=== PATIENT | female | born 1955 | race Caucasian/White ===

== ENCOUNTER 2020-01-01 14:22 | Outpatient (CLI) | payer MEDICARE, SELFPAY ==
--- NOTE | ~2020-01-01 | XR_ITS ---
XR chest 2V DATE: 01/01/2020 14:55 INDICATION: Cough. Acute upper respiratory infection. TECHNIQUE: PA and lateral views COMPARISON: 01/16/2019 PA and lateral chest FINDINGS: Postoperative changes of cervical spinal fusion and thoracolumbar spine fusion. Normal heart size. No hilar or mediastinal enlargement. No pulmonary infiltrate or consolidation, ple ural effusion or pulmonary vascular congestion or pneumothorax. Surgical clips, right upper quadrant, likely due to cholecystectomy. IMPRESSION: No active cardiopulmonary disease Reviewed, dictated and finalized at location A.
== END 2020-01-01 14:23 | disposition home or self-care (01) ==
PROVIDERS: PCP Family Medicine; Visit Provider Nurse Practitioner Family
DX: J06.9 Acute upper respiratory infection, unspecified (principal)
CPT/HCPCS: 71046

== ENCOUNTER 2020-01-06 09:25 | Outpatient (CLI) | payer MEDICARE, SELFPAY ==
[2020-01-06 09:38] LABS: Basophils Absolute Auto 0.1 K/mm3 (0.0-0.1); Basophils Percent Auto 0.6 % (0.2-1.2); Eosinophils Absolute Auto 0.3 K/mm3 (0-0.3); Eosinophils Percent Auto 2.4 % (0-4.4); Hematocrit 42.2 % (37.0-47.0); Hemoglobin 13.6 g/dL (12.0-15.0); Immature Granulocyte Absolute 0.11 K/mm3 (0.00-0.031); Immature Granulocyte Percent A 0.8 % (0-0.5); Lymphocytes Percent Auto 27.7 % (18.3-44.2); Mean Corpuscular HGB Conc 32.2 g/dl (32-36); Mean Corpuscular Hemoglobin 30.6 pg (26-34); Mean Corpuscular Volume 94.8 fl (80-100); Mean Platelet Volume 9.2 fl (7.4-10.4); Monocytes Absolute Auto 1.1 K/mm3 (0.1-0.6); Monocytes Percent Auto 7.9 % (2.6-8.5); Neutrophils Absolute Auto 8.8 K/mm3 (1.3-6.7); Neutrophils Percent Auto 60.6 % (45.5-73.1); Platelet Count Result 382 k/mm3 (150-375); Red Blood Count 4.45 M/mm3 (4.2-5.4); Red Cell Distribution Width 13.6 % (11.5-14.5); White Blood Count 14.5 K/mm3 (4.5-10.0)
== END 2020-01-06 09:26 | disposition home or self-care (01) ==
LOC: ANHLAB 09:27
PROVIDERS: PCP Family Medicine; Visit Provider Internal Medicine Hematology & Oncology
DX: D47.3 Essential (hemorrhagic) thrombocythemia (principal)
CPT/HCPCS: 36415; 85025

== ENCOUNTER 2020-04-06 11:28 | Outpatient (CLI) | payer MEDICARE, SELFPAY ==
--- NOTE | 2020-04-06 11:43 | ECG_ITS ---
Measurements Intervals [place] Rate: 97 P: 59 WV: 136 QRS: 2 QRSD: 84 T: 63 QT: 329 QTc: 420 Interpretive Statements SINUS RHYTHM ATRIAL PREMATURE COMPLEX BASELINE WANDER- V4-V6 BORDERLINE ECG Electronically Signed On 04-06-2020 12:17:20 CDT by Asher Chairez D.O.
== END 2020-04-06 11:29 | disposition home or self-care (01) ==
PROVIDERS: PCP Family Medicine; Visit Provider Family Medicine
DX: I10 Essential (primary) hypertension (principal); R94.31 Abnormal electrocardiogram [ECG] [EKG]
CPT/HCPCS: 93005

== ENCOUNTER 2020-04-11 16:48 | Observation (INO) | payer MEDICARE, SELFPAY ==
--- NOTE | ~2020-04-11 | CT_ITS ---
EXAMINATION: CT hip RT wo con DATE: 04/11/2020 22:59 INDICATION: Right hip pain. TECHNIQUE: Computed tomography (CT) of the right hip was performed without intravenous contrast. Auto mated exposure control and iterative reconstruction technique were employed. The dose-length product was 867.90 mGy-cm. COMPARISON: Right hip radiographs 04/11/2020 FINDINGS: Bone alignment is normal. No fracture. There are changes of anterior and posterior fusion p rocedures in lumbar spine. There are lucencies around the right L5 pedicle screw, consistent with loo sening. There is a revision of the left S1 screw. There is mild right hip osteoarthritis. IMPRESSION: 1. No fracture. 2. Mild right hip osteoarthritis. 3. Anterior and posterior fusion procedures in lumbar spine with lucencies around the right L5 screw, consistent with loosening. Reviewed, dictated and finalized at location A. IMPRESSION: 1. No fracture. 2. Mild right hip osteoarthritis. 3. Anterior and posterior fusion procedures in lumbar spine with lucencies arou nd the right L5 screw, consistent with loosening.
--- NOTE | ~2020-04-11 | MR_ITS ---
EXAMINATION: MR hip RT wo con DATE: 04/12/2020 16:21 INDICATION: Right hip pain. TECHNIQUE: Magnetic resonance imaging (MRI) of the right hip was performed without intravenous contra st. Sequences included axial and coronal PD-weighted FS FSE and axial T1-weighted FSE and axial STIR FSE of the pelvis. Sequences of the hip included 2D FIESTA, T1-weighted fast GRE, coronal PD-weighted FSE, and axial and sagittal PD-weighted FS FSE. COMPARISON: Right hip radiographs and CT 04/11/2020 FINDINGS: Bones/cartilage: There is artifact from instrumentation of lumbar spine. Bone alignment is normal. No fracture. There is mild right hip osteoarthritis including partial thickness cartilage loss and tiny osteophytes. Labrum: The right acetabular labrum is intact. Fluid: There is no hip joint effusion. There is mild right-sided trochanteric bursitis. Soft tissues: There is edema in the right gluteus minimus, gluteus medius, and tensor fascia shae muscles near ante rior superior iliac spine. There are symmetric partial tears of the hamstring origins bilaterally. Th ere is severe right gluteus minimus tendinopathy and mild right gluteus medias tendinopathy. IMPRESSION: 1. No fracture. 2. Mild right hip osteoarthritis. 3. Edema in right gluteus minimus, gluteus medius, and tensor fascia shae muscles near anterior super ior iliac spine, consistent with mild strains. 4. Severe right gluteus minimus tendinopathy and mild right gluteus medius tendinopathy. 5. Mild right-sided trochanteric bursitis. Reviewed, dictated and finalized at location A. IMPRESSION: 1. No fracture. 2. Mild right hip osteoarthritis. 3. Edema in right gluteus minimus, gluteus medius, and tensor fascia shae muscl es near anterior superior iliac spine, consistent with mild strains. 4. Severe right gluteus minimus tendinopathy and mild right gluteus medius tend inopathy. 5. Mild right-sided trochanteric bursitis.
--- NOTE | ~2020-04-11 | XR_ITS ---
EXAMINATION: XR hip RT min 2V DATE: 04/11/2020 18:43 INDICATION: Right hip pain. TECHNIQUE: 3 views of right hip on 4 radiographs were obtained. COMPARISON: None. FINDINGS: Bone alignment is normal. No fracture. There is mild right hip osteoarthritis. IMPRESSION: 1. Mild right hip osteoarthritis. Reviewed, dictated and finalized at location A.
[2020-04-11 16:55] VITALS: BP 137/50; PULSE 83; RESP 16; TEMP 36.2; O2SAT 96
[2020-04-11 19:25] VITALS: BP 130/69; PULSE 86; RESP 18; O2SAT 98
--- NOTE | 2020-04-11 20:22 | ED.GENADULT ---
HPI - General Adult General Chief complaint: Extremity Injury, Lower Stated complaint: R hip pain Time Seen by Provider: 04/11/20 20:07 Source: patient History of Present Illness HPI narrative: Patient is a 65 y/o female complaining of severe right hip pain for last 3 days. She states she has arthritis and chronic pain, but pain is worse since 3 days ago. There is no pain radiation. She describes her pain as sharp and rates it as 4/10 at rest and 10/10 with movement. Movement aggravates her pain. She took Ibuprofen which did not help. She has no fever, chill. She has some nausea, but no vomiting. She is not able to ambulate due to severe pain. She has chronic back pain and history of back surgery. She states that she fell in bath tub 4 weeks ago, but did not have more recent trauma. Related Data Home Medications Medication Instructions Recorded Confirmed ascorbic acid (vitamin C) 500 mg 500 mg PO DAILY 06/04/19 04/05/20 tablet aspirin 81 mg tablet,delayed 81 mg PO DAILY 06/04/19 04/05/20 release budesonide 0.5 mg/2 mL suspension 0.5 mg INHALATION DAILY 06/04/19 04/05/20 for nebulization fluticasone propionate 50 2 spray NASAL DAILY 06/04/19 04/05/20 mcg/actuation nasal spray,suspension multivitamin 1 tablet PO DAILY 08/18/19 04/05/20 albuterol sulfate 2.5 mg INHALATION Q4-6H PRN 10/09/19 04/05/20 Allergies Allergy/AdvReac Type Severity Reaction Status Date / Time Penicillins Allergy Intermediate Hives Verified 04/05/20 13:02 Sulfa (Sulfonamide AdvReac Intermediate Abdominal Verified 04/05/20 13:02 Antibiotics) Pain sulfanilamide AdvReac Intermediate Abdominal Verified 04/05/20 13:02 Pain erythromycin base AdvReac Mild Abdominal Verified 04/05/20 13:02 Pain tetracycline AdvReac Mild Abdominal Verified 04/05/20 13:02 Pain Review of Systems Constitutional: Constitutional: Denies chills, Denies fever(s), Denies headache(s) and Denies weakness Eyes: Eyes: Denies blurry vision ENT: Denies headache(s) and Denies neck pain Cardiovascular: Cardiovascular: Denies chest pain and Denies dyspnea Respiratory: Respiratory: Denies cough and Denies dyspnea Gastrointestinal: Gastrointestinal: Denies abdominal pain, Denies diarrhea, Reports nausea and Denies vomiting Genitourinary: Genitourinary: Denies hematuria and Denies dysuria Musculoskeletal: Musculoskeletal: Reports back pain (chronic), Reports arthralgias (right hip pain) and Denies neck pain Neurologic: Denies headache(s) and Denies weakness PMFSH Past Medical History Medical History Anxiety and depression Bronchitis Elevated glucose Elevated liver enzymes Essential hypertension Gastro-esophageal reflux disease without esophagitis History of pulmonary embolism Hypothyroidism Lumbar spondylosis with myelopathy Mixed hyperlipidemia Obesity due to energy imbalance Other intervertebral disc degeneration, lumbosacral region Skin cancer Unspecified asthma, uncomplicated Surgical History Surgical History History of appendectomy 1986 History of carpal tunnel release 2000 History of cholecystectomy 2009 History of fusion of cervical spine C6-C7 1985, 1990, 2005, 2010 History of fusion of lumbar spine 2006, 2010 History of repair of rotator cuff 1988 Status post insertion of spinal cord stimulator Family History Family History Mother Hypertension Father Hypertension Cerebrovascular accident Family history of diabetes mellitus in first degree relative Family history of coronary artery disease Other Diabetes mellitus Family history of arthritis Social History Social History Smoking status: Never smoker Alcohol intake: never Substance use: never Substance use type: does not use Gender identity (
[2020-04-11] MEDS: KETOROLAC 30 MG/ML VIAL (*BKC) IV PUSH (20:52)
[2020-04-11 21:21] LABS: Anion Gap 10 mmol/L (8-16); Blood Urea Nitrogen 28 mg/dL (7-17); Calcium 9.7 mg/dL (8.4-10.2); Carbon Dioxide 27 mmol/L (22-30); Chloride 102 mmol/L (98-107); Estimated CRCL calculation 74 ml/min; Estimated Glomerular Filt Rate > 60; Glucose 105 mg/dL (65-105); Potassium 4.3 mmol/L (3.4-5.0); Sodium 139 mmol/L (137-145)
[2020-04-11 21:41] LABS: Erythrocyte Sedimentation Rate 33 mm/hr (0-20)
[2020-04-11] MEDS: MORPHINE SULFATE 4 MG/ML INJ IV PUSH (21:49)
[2020-04-11] MEDS: CYCLOBENZAPRINE HCL 10 MG TABLET PO (22:51)
--- NOTE | 2020-04-11 23:15 | PC.NURSE ---
Assumed care of patient-received report from Farrah GOOD. Patient continues to c/o Right hip pain
[2020-04-12] VITALS (8 sets, daily range): BP systolic 112–147; BP diastolic 47–77; PULSE 74–92; RESP 17–27; TEMP 36.3–37; O2SAT 92–99; BMI 45.7
--- NOTE | 2020-04-12 01:14 | ADMGEN ---
This patient, Tammie Sims, was admitted to [facility] Surg Room 300-01. Patient/family oriented to hospital policies and general routines including ID bracelet, bed and alarms, visiting hours, pain management, procedures, bathroom and other care routines, personal items, smoking policy, room service/diet, and visiting hours. Valuables list has been completed. Information on how to activate the Rapid Response Team has been discussed. Patient/Family are encouraged to report perceived risks to care and to ask questions if they do not understand what they are told or what they should do.
--- NOTE | 2020-04-12 01:35 | PM.IMHP ---
H&P: HPI History of Present Illness Date/Time: 04/12/20 01:35 Chief complaint: right hip pain Narrative: this is a pleasant 65-year-old female with known chronic back pain, hypothyroidism, and other comorbidities who presented to the hospital [facility] with a complaint of severe right hip pain that has worsened over the past 3 days. The patient mentions that she is known to have had chronic right hip discomfort for a long time now although this has worsened over the past 3 days. [facility] the patient cannot bear any weight and can no longer ambulate. She reports that she fell in the bathtub about a month ago but since then she has not had any other instances of trauma. Patient denies any fevers, chills, rashes, chest pain, shortness of breath, dysuria, abdominal pain, hematuria, or focal neurological symptoms. Patient was evaluated emergency room this evening and underwent CT scan of her right hip and plain x-ray films which were unremarkable. Orthopedic surgeon was consulted by ER provider who has asked that we admit the patient to the hospital and obtain an MRI of her right hip in the morning. patient has no other complaints at this time. Review of Systems Review of Systems: All systems reviewed & are unremarkable except as noted in HPI and below PMFSH Past Medical History Medical History Anxiety and depression Bronchitis Elevated glucose Elevated liver enzymes Essential hypertension Gastro-esophageal reflux disease without esophagitis History of pulmonary embolism Hypothyroidism Lumbar spondylosis with myelopathy Mixed hyperlipidemia Obesity due to energy imbalance Other intervertebral disc degeneration, lumbosacral region Skin cancer Unspecified asthma, uncomplicated Surgical History Surgical History History of appendectomy 1986 History of carpal tunnel release 2000 History of cholecystectomy 2009 History of fusion of cervical spine C6-C7 1985, 1991, 2005, 2010 History of fusion of lumbar spine 2006, 2010 History of repair of rotator cuff 1988 Status post insertion of spinal cord stimulator Family History Family History Mother Hypertension Father Hypertension Cerebrovascular accident Family history of diabetes mellitus in first degree relative Family history of coronary artery disease Other Diabetes mellitus Family history of arthritis Social History Social History Smoking status: Never smoker Alcohol intake: never Substance use: never Substance use type: does not use Gender identity (if verbalized by the patient): Female Spiritual care concerns: No Meds Home Medications and Allergies Home Medications Medication Instructions Recorded Confirmed Type ascorbic acid (vitamin C) 500 mg 500 mg PO DAILY 06/04/19 04/05/20 History tablet aspirin 81 mg tablet,delayed 81 mg PO DAILY 06/04/19 04/05/20 History release budesonide 0.5 mg/2 mL suspension 0.5 mg INHALATION DAILY 06/04/19 04/05/20 History for nebulization fluticasone propionate 50 2 spray NASAL DAILY 06/04/19 04/05/20 History mcg/actuation nasal spray,suspension multivitamin 1 tablet PO DAILY 08/18/19 04/05/20 History albuterol sulfate 2.5 mg INHALATION Q4-6H PRN 10/09/19 04/05/20 History albuterol sulfate 90 mcg/actuation 2 inhalation INHALATION Q4-6H PRN 10/09/19 04/05/20 Rx aerosol inhaler #8.5 gm furosemide 20 mg tablet 20 mg PO QAM #90 tablet 10/23/19 04/05/20 Rx meloxicam 15 mg tablet 15 mg PO DAILY #90 tablet 01/04/20 04/05/20 Rx levothyroxine 175 mcg tablet 175 mcg PO DAILY #30 tablet 01/12/20 04/05/20 Rx duloxetine 60 mg capsule,delayed 60 mg PO DAILY #90 cap 01/18/20 04/05/20 Rx release hydrocodone 5 mg-acetaminophen 325 1 tablet PO Q8H PRN #90 tablet 02/15/20 04/05/20
[2020-04-12] MEDS: MORPHINE SULFATE 4 MG/ML INJ IV PUSH ×3 (03:28→20:11)
[2020-04-12 06:28] LABS: Basophils Absolute Auto 0.1 K/mm3 (0.0-0.1); Basophils Percent Auto 0.6 % (0.2-1.2); Eosinophils Absolute Auto 0.2 K/mm3 (0-0.3); Eosinophils Percent Auto 1.6 % (0-4.4); Hematocrit 38.1 % (37.0-47.0); Hemoglobin 12.4 g/dL (12.0-15.0); Immature Granulocyte Absolute 0.11 K/mm3 (0.00-0.031); Immature Granulocyte Percent A 0.7 % (0-0.5); Lymphocytes Percent Auto 33.9 % (18.3-44.2); Mean Corpuscular HGB Conc 32.5 g/dl (32-36); Mean Corpuscular Hemoglobin 30.5 pg (26-34); Mean Corpuscular Volume 93.8 fl (80-100); Mean Platelet Volume 9.7 fl (7.4-10.4); Monocytes Absolute Auto 1.3 K/mm3 (0.1-0.6); Monocytes Percent Auto 9.1 % (2.6-8.5); Neutrophils Percent Auto 54.1 % (45.5-73.1); Platelet Count Result 335 k/mm3 (150-375); Red Blood Count 4.06 M/mm3 (4.2-5.4); Red Cell Distribution Width 14.1 % (11.5-14.5); White Blood Count 14.8 K/mm3 (4.5-10.0)
[2020-04-12 06:41] LABS: Anion Gap 5 mmol/L (8-16); Blood Urea Nitrogen 33 mg/dL (7-17); Calcium 9.3 mg/dL (8.4-10.2); Carbon Dioxide 32 mmol/L (22-30); Chloride 101 mmol/L (98-107); Estimated CRCL calculation 67 ml/min; Estimated Glomerular Filt Rate > 60; Glucose 121 mg/dL (65-105); Sodium 138 mmol/L (137-145)
--- NOTE | 2020-04-12 09:42 | PM.CNOR ---
Assessment and Plan Assessment and plan (1) Acute pain of right hip: Code(s): M25.551 - Pain in right hip <Pat Salazar [employer] ASSISTANT - Last Filed: 04/12/20 17:03> Status: Acute <Pat Salazar [facility] - Last Filed: 04/12/20 17:03> Assessment and Plan: Three day history of right hip pain which radiates down the lateral aspect of the leg and into the anterior aspect of the thigh. History, exam, radiographs and CT scan reviewed with the patient. Emergency room records reviewed. The patient denies any injury of the right hip but did slip in the bathtub approximately 4 weeks ago. She reports no pain immediately status post her fall. Over the past 3 days she has had increasing right hip pain which has caused her difficulty with laying on the affected side. She has been taking ibuprofen which is provided her with no relief of pain. She is having difficulty walking due to pain. She does have an extensive lumbar spine history with approximately 5 surgeries which were performed in [place]. Radiograph of the right hip reveal no evidence of fracture, dislocation or acute abnormalities. CT scan of the right hip showed mild degenerative changes. CT scan also reveals anterior and posterior fusion procedures in lumbar spine with lucencies around the right L5 screw, consistent with loosening. Patient currently awaiting MRI of the right hip at this time for further evaluation. Patient will ultimately require follow up with her spine surgeon given concerns for lucency. We will determine further plan of care regarding her right hip pain pending MRI results. Continue pain control and protected weight-bearing in the interim. Patient may have Paulson catheter removed if she can tolerate getting out of bed to the bedside commode. <Pat Barraganpeter, [facility] - Last Filed: 04/12/20 17:03> (2) Lumbar spondylosis with myelopathy: Code(s): M47.16 - Other spondylosis with myelopathy, lumbar region <Pat Barraganpeter, [facility] - Last Filed: 04/12/20 17:03> Status: Acute <Pat Barraganpeter [facility] - Last Filed: 04/12/20 17:03> Assessment and Plan: CT scan of the right hip showed anterior posterior fusion procedures in the lumbar spine with lucencies around the right L5 screw consistent with loosening. These image findings could correlate with her right hip pain. She will need to follow up with her spine surgeon for further evaluation and management as an outpatient. <MILLY Bender - Last Filed: 04/12/20 17:03> History of Present Illness HPI Consult date: 04/12/20 <MILLY Bender - Last Filed: 04/12/20 17:03> 04/13/20 <Raza Metcalf MD - Last Filed: 04/13/20 14:49> Requesting physician: Sam Linares MD <MILLY Bender - Last Filed: 04/12/20 17:03> Consult reason: joint pain (RIGHT Hip Pain ) <MILLY Bender - Last Filed: 04/12/20 17:03> Chief complaint: right hip pain <MILLY Bender - Last Filed: 04/12/20 17:03> Narrative: 65-year-old female with a history of right hip pain for the past 3 days. the patient denies any known injury. She did slip and fall in her bathtub approximately 4 weeks ago but had no hip pain following the injury. She has been unable to lay on the affected side and ibuprofen has not helped her pain. She reports pain when standing which shoots down the right leg. She has had no previous joint replacement history. She does have history of 5 lumbar surgeries and 4 cervical surgeries which were performed in [place]. Both radiographs and a CT were performed in the emergency room which revealed no evidence of fracture, dislocation or acute abnormalities of the hip. Mild degenerative changes were noted on radiographs. CT scan did reveal anterior and posterior fusion procedures in lumbar spine with lucencies around the right L5 screw, consistent with loosening. <MILLY Bender - Last Filed: 04/12/20 17:03> Review of Systems Cons
--- NOTE | 2020-04-12 18:09 | PM.IMPN ---
Progress Note: A&P Assessment and Plan (1) Acute right hip pain: Code(s): M25.551 - Pain in right hip Status: Acute Assessment and Plan: patient will be admitted for observation to med surg. we will obtain MRI of the right hip in a.m. to rule out fracture. consider that the patient may simply have advanced osteoarthritis of her right hip and now requiring right hip replacement. orthopedic surgeon has been consulted by ER provider. Appreciate Ortho recommendations. 04/12/20 18:09 Patient is morbidly obese with extensive history of lumbar spine surgeon patient had fair at home a month of however pain in her right hip was persist was progressive getting worse last couple of days she had difficulty time weight-bearing and ambulating patient presented emergency depart with a complaint of severe right hip pain, CT scan of the right hip did not show any acute fracture does show lucency and her lumbar spine surgical site, patient has a controllable bowel and bladder, and denies any fever or chills, patient will have MRI of the right hip to further evaluate patient be seen by orthopedic service and further recommendation to follow (2) Ambulatory dysfunction: Code(s): R26.2 - Difficulty in walking, not elsewhere classified Status: Acute Assessment and Plan: PT OT evaluation when appropriate (3) Hypothyroidism: Qualifiers: Hypothyroidism type: other Qualified Code(s): E03.8 - Other specified hypothyroidism Code(s): E03.9 - Hypothyroidism, unspecified Status: Chronic Assessment and Plan: continue levothyroxine (4) Anxiety and depression: Code(s): F41.9 - Anxiety disorder, unspecified; F32.9 - Major depressive disorder, single episode, unspecified Status: Chronic Assessment and Plan: continue home medications (5) Essential hypertension: Code(s): I10 - Essential (primary) hypertension Status: Chronic Assessment and Plan: continue metoprolol (6) Gastro-esophageal reflux disease without esophagitis: Code(s): K21.9 - Gastro-esophageal reflux disease without esophagitis Status: Chronic Assessment and Plan: continue Prilosec (7) Chronic back pain: Qualifiers: Back pain location: back pain in unspecified location Back pain laterality: unspecified Qualified Code(s): M54.9 - Dorsalgia, unspecified; G89.29 - Other chronic pain Code(s): M54.9 - Dorsalgia, unspecified; G89.29 - Other chronic pain Status: Chronic Assessment and Plan: continue hydrocodone as needed Additional Plan date of service was April 12, 2020 at approximately 12:30 a.m. Subjective Date/time seen: 04/12/20 18:09 Patient is morbidly obese with extensive history of lumbar spine surgeon patient had fair at home a month of however pain in her right hip was persist was progressive getting worse last couple of days she had difficulty time weight-bearing and ambulating patient presented emergency depart with a complaint of severe right hip pain, CT scan of the right hip did not show any acute fracture does show lucency and her lumbar spine surgical site, patient has a controllable bowel and bladder, and denies any fever or chills, patient will have MRI of the right hip to further evaluate patient be seen by orthopedic service and further recommendation to follow Review of Systems Review of Systems: All systems reviewed & are unremarkable except as noted in HPI and below Exam Narrative: Exam Narrative: morbidly obese Const: General: no acute distress and uncomfortable HENMT: General nose exam: Normal nares present Eyes: General: appearance normal, both eyes and all related structures Sclera: sclerae normal Neck: Neck: supple Resp: Effort & Inspection: normal respiratory effort Auscultation: clear to auscultation bilaterally Cardio: Rate: regular rate Rhythm: regular rhythm GI: Auscultation: avni
--- NOTE | 2020-04-12 18:29 | PC.NURSE ---
notified that pt's spinal surgeon is Dr. Gomze at [facility] in [facility], but hasnt seen him in over 2 yrs.
[2020-04-13] MEDS: MORPHINE SULFATE 4 MG/ML INJ IV PUSH (03:58)
[2020-04-13 06:00] VITALS: BP 114/40; PULSE 76; RESP 18; TEMP 36.7; O2SAT 98
[2020-04-13 06:58] LABS: Hematocrit 38.5 % (37.0-47.0); Hemoglobin 12.3 g/dL (12.0-15.0); Mean Corpuscular HGB Conc 31.9 g/dl (32-36); Mean Corpuscular Hemoglobin 30.5 pg (26-34); Mean Corpuscular Volume 95.5 fl (80-100); Mean Platelet Volume 9.2 fl (7.4-10.4); Platelet Count Result 318 k/mm3 (150-375); Red Blood Count 4.03 M/mm3 (4.2-5.4); White Blood Count 12.6 K/mm3 (4.5-10.0)
[2020-04-13 08:18] VITALS: PULSE 81; RESP 16
[2020-04-13] MEDS: BUDESONIDE RESPULE NEB 0.5 MG/2 ML AMP INHALATION (08:20)
[2020-04-13 08:25] VITALS: PULSE 84; RESP 18
[2020-04-13 08:37] LABS: Anion Gap 4 mmol/L (8-16); Blood Urea Nitrogen 24 mg/dL (7-17); Carbon Dioxide 31 mmol/L (22-30); Chloride 104 mmol/L (98-107); Estimated CRCL calculation 84 ml/min; Estimated Glomerular Filt Rate > 60; Glucose 108 mg/dL (65-105); Potassium 4.5 mmol/L (3.4-5.0); Sodium 139 mmol/L (137-145)
[2020-04-13] MEDS: LEVOTHYROXINE SODIUM 75 MCG TABLET PO (08:54)
[2020-04-13] MEDS: LEVOTHYROXINE SODIUM 100 MCG TABLET PO (08:55)
[2020-04-13] MEDS: PANTOPRAZOLE 40 MG TABLET PO (08:56)
[2020-04-13] MEDS: MELOXICAM 7.5 MG TABLET 15 MG PO (08:56)
[2020-04-13] MEDS: ASPIRIN 81 MG ENTERIC TABLET PO (10:23)
[2020-04-13 10:24] VITALS: PULSE 78
[2020-04-13] MEDS: PRAMIPEXOLE 0.5 MG TABLET PO (10:24)
[2020-04-13] MEDS: METOPROLOL SUCCINATE EXT REL 25 MG TABCR PO (10:24)
[2020-04-13] MEDS: ROSUVASTATIN 10 MG TABLET 20 MG PO (10:24)
[2020-04-13] MEDS: MONTELUKAST SODIUM 10 MG TABLET PO (10:24)
[2020-04-13] MEDS: HYDROcodone/acetaminophen (*CRX) 5-325 MG TABLET 1 TAB PO (10:52)
--- NOTE | 2020-04-13 14:27 | PM.PNORT ---
Progress Note: A&P Additional Plan RIGHT HIP PAIN IMPROVING WITH TORODOL. I REVIEWED HER IMAGING STUDIES INCLUDING MRI CT SCAN AND XRAYS OF THE HIP. SHE DOES NOT APPEAR TO HAVE ANY PATHOLOGY TO THE HIP ASIDE FROM MILD DJD. I BELIEVE SHE HAS A SEVERE BURSITIS. RECOMMEND MEDROL DOSE PACK THEN FOLLOW UP IN THE OFFICE IF NO IMPROVEMENT. SHE WILL DCd TODAY AFTER PT. Time Spent With Patient Time with patient: 15 - 25 minutes Subjective Subjective Date/Time Seen: 04/13/20 14:27RIGHT HIP AND LOW BACK PAIN. TODAY SHE STATES HER PAIN HAS IMPROVED IN THE HIP. SHE DENIES ANY WEAKNESS IN THE LOWER EXTREMITIES. NO FEVER OR CHILLS. Exam Extrem: Other: VSS AFEBRILE. SHE HAS A LOT OF TENDERNESS IN THE TROCHANTERIC BURSAE. SHE HAS NO WEAKNESS. SENSATION IS INTACT TO ALL DERMATOMES. SHE HAS NO SIGNIFICANT PAIN IN THE HIP WITH PASSIVE MOTION OR ACTIVE FLEXION OR EXTENSION. OTHERWISE NV INTACT Objective Data Vital Signs Vital Signs: Vital Signs - 24 hr 04/12/20 20:00 04/12/20 22:00 04/13/20 06:00 Temperature 36.8 C 36.7 C Pulse Rate 83 83 76 Respiratory Rate 20 20 18 Blood Pressure 128/50 L 114/40 L Pulse Oximetry 95 97 98 04/13/20 08:18 04/13/20 08:25 04/13/20 10:24 Temperature Pulse Rate 81 84 78 Respiratory Rate 16 18 Blood Pressure Pulse Oximetry Intake/Output Intake/Output: Intake & Output 04/10/20 04/11/20 04/12/20 04/13/20 23:59 23:59 23:59 23:59 Intake Total 2060 440 Output Total 1100 800 Balance 960 -360 Meds/Results Medications: Active Medications Generic Name Dose Route Start Last Admin Trade Name Freq PRN Reason Stop Dose Admin Hydrocodone Bitart/Acetaminophen 1 tab 04/13/20 10:14 04/13/20 10:52 [place] 5-325 Mg PO 1 tab Q6H PRN Administration Pain Rated 4-6 Albuterol 2.5 mg 04/13/20 07:24 Albuterol Sulf Neb 2.5 Mg/3 Ml INHALATION Q4-6H PRN Shortness Of Breath Or Wheezing Aspirin 81 mg 04/13/20 09:00 04/13/20 10:23 Aspirin Ec PO 81 mg DAILY REILLY Administration Budesonide 0.5 mg 04/13/20 08:00 04/13/20 08:20 Pulmicort Respule Neb INHALATION 0.5 mg Q12HRT REILLY Administration Clonazepam 0.5 mg 04/13/20 07:24 Klonopin Tablet PO TID PRN anxiety Cyclobenzaprine HCl 10 mg 04/13/20 07:24 Flexeril PO TID PRN muscle spasm Levofloxacin 500 mg 04/13/20 09:00 04/13/20 08:55 Levaquin Tab PO 04/14/20 09:01 500 mg DAILY REILLY Administration Levothyroxine Sodium 100 mcg 04/13/20 06:30 04/13/20 08:55 Synthroid PO 100 mcg DAILY@0630 REILLY Administration Levothyroxine Sodium 75 mcg 04/13/20 06:30 04/13/20 08:54 Synthroid PO 75 mcg DAILY@0630 REILLY Administration Meloxicam 15 mg 04/13/20 09:00 04/13/20 08:56 Mobic PO 15 mg QAM REILLY Administration Metoprolol Succinate 25 mg 04/13/20 09:00 04/13/20 10:24 Toprol Xl PO 25 mg DAILY REILLY Administration Montelukast Sodium 10 mg 04/13/20 09:00 04/13/20 10:24 Singulair PO 10 mg DAILY REILLY Administration Morphine Sulfate 4 mg 04/12/20 18:28 04/13/20 03:58 Morphine Sulfate Inj IV PUSH 4 mg Q6H PRN Administration Pain Rated 7-10 Pantoprazole Sodium 40 mg 04/13/20 09:00 04/13/20 08:56 Protonix PO 40 mg QAM REILLY Administration Pramipexole Dihydrochloride 0.5 mg 04/13/20 09:00 04/13/20 10:24 Mirapex PO 0.5 mg BID REILLY Administration Rosuvastatin Calcium 20 mg 04/13/20 09:00 04/13/20 10:24 Crestor PO 20 mg DAILY REILLY Administration Radiology Results: ITS Impressions Hip X-Ray 04/11/20 18:45 IMPRESSION: 1. Mild right hip osteoarthritis. Hip CT 04/11/20 23:02 IMPRESSION: 1. No fracture. 2. Mild right hip osteoarthritis. 3. Anterior and posterior fusion procedures in lumbar spine with lucencies around the right L5 screw, consistent with loosening. Hip MRI 04/12/20 16:37
--- NOTE | 2020-04-13 15:04 | PM.DS ---
DS: Admitting Diagnosis Admitting Diagnosis Admitting Diagnosis: right hip pain DS: Discharge Diagnosis Discharge Diagnosis (1) Acute right hip pain: Code(s): M25.551 - Pain in right hip Status: Acute Assessment and Plan: patient will be admitted for observation to med surg. we will obtain MRI of the right hip in a.m. to rule out fracture. consider that the patient may simply have advanced osteoarthritis of her right hip and now requiring right hip replacement. orthopedic surgeon has been consulted by ER provider. Appreciate Ortho recommendations. 04/12/20 18:09 Patient is morbidly obese with extensive history of lumbar spine surgeon patient had fair at home a month of however pain in her right hip was persist was progressive getting worse last couple of days she had difficulty time weight-bearing and ambulating patient presented emergency depart with a complaint of severe right hip pain, CT scan of the right hip did not show any acute fracture does show lucency and her lumbar spine surgical site, patient has a controllable bowel and bladder, and denies any fever or chills, patient will have MRI of the right hip to further evaluate patient be seen by orthopedic service and further recommendation to follow (2) Ambulatory dysfunction: Code(s): R26.2 - Difficulty in walking, not elsewhere classified Status: Acute Assessment and Plan: PT OT evaluation when appropriate (3) Hypothyroidism: Qualifiers: Hypothyroidism type: other Qualified Code(s): E03.8 - Other specified hypothyroidism Code(s): E03.9 - Hypothyroidism, unspecified Status: Chronic Assessment and Plan: continue levothyroxine (4) Anxiety and depression: Code(s): F41.9 - Anxiety disorder, unspecified; F32.9 - Major depressive disorder, single episode, unspecified Status: Chronic Assessment and Plan: continue home medications (5) Essential hypertension: Code(s): I10 - Essential (primary) hypertension Status: Chronic Assessment and Plan: continue metoprolol (6) Gastro-esophageal reflux disease without esophagitis: Code(s): K21.9 - Gastro-esophageal reflux disease without esophagitis Status: Chronic Assessment and Plan: continue Prilosec (7) Chronic back pain: Qualifiers: Back pain location: back pain in unspecified location Back pain laterality: unspecified Qualified Code(s): M54.9 - Dorsalgia, unspecified; G89.29 - Other chronic pain Code(s): M54.9 - Dorsalgia, unspecified; G89.29 - Other chronic pain Status: Chronic Assessment and Plan: continue hydrocodone as needed DS: Summary Hospital Course Reason for hospitalization: Chief complaint: right hip pain Narrative: this is a pleasant 65-year-old female with known chronic back pain, hypothyroidism, and other comorbidities who presented to the hospital [facility] with a complaint of severe right hip pain that has worsened over the past 3 days. The patient mentions that she is known to have had chronic right hip discomfort for a long time now although this has worsened over the past 3 days. [facility] the patient cannot bear any weight and can no longer ambulate. She reports that she fell in the bathtub about a month ago but since then she has not had any other instances of trauma. Patient denies any fevers, chills, rashes, chest pain, shortness of breath, dysuria, abdominal pain, hematuria, or focal neurological symptoms. Patient was evaluated emergency room this evening and underwent CT scan of her right hip and plain x-ray films which were unremarkable. Orthopedic surgeon was consulted by ER provider who has asked that we admit the patient to the hospital and obtain an MRI of her right hip in the morning. patient has no other complaints at this time. Hospital Course: Patient is morbidly obese with extensive history of lumbar spine surgeon patient
== END 2020-04-13 16:00 | disposition home or self-care (01) ==
LOC: ANHED 20:59 → ANH3MEDSUR 04-12 00:21
PROVIDERS: Admitting Provider Family Medicine; Emergency Provider Emergency Medicine; PCP Family Medicine; Visit Provider Family Medicine
DX: M16.11 Unilateral primary osteoarthritis, right hip (principal); R26.2 Difficulty in walking, not elsewhere classified; I10 Essential (primary) hypertension; E03.9 Hypothyroidism, unspecified; J45.909 Unspecified asthma, uncomplicated; K21.9 Gastro-esophageal reflux disease without esophagitis; Z85.828 Personal history of other malignant neoplasm of skin; F41.8 Other specified anxiety disorders; M51.37 Other intervertebral disc degeneration, lumbosacral region; M47.816 Spondylosis without myelopathy or radiculopathy, lumbar region; G89.29 Other chronic pain; Z98.1 Arthrodesis status
CPT/HCPCS: 36415; 73502; 73700; 73721; 80048; 85025; 85027; 85652; 86140; 94640; 96374; 96375; 96376; 97161; 99285; A9270; G0378; J1885; J2270